=== PATIENT | female | born 1990 | race American Indian/Alaskan Native ===

== ENCOUNTER 2018-09-19 19:35 | Emergency (ER) | payer BC ==
[2018-09-19] MEDS ORDERED: IBUPROFEN PO ONE ×2 (20:09→20:12)
--- NOTE | 2018-09-20 00:24 | Emergency Department Report ---
ED ENT HPI - General Chief complaint: Sore Throat Stated complaint: SORE THROAT FEVER CHILLS HEADACHE Source: patient, family Mode of arrival: Ambulatory Limitations: No Limitations - History of Present Illness Initial comments: This is a 28-year-old Gladys female who presents to the emergency room with sore throat, fever, chills and headache that started this morning. Patient states she took some Tylenol but can't break the fever. She denies nausea, vomiting, diarrhea. MD complaint: sore throat -: This morning Location: throat Severity: moderate Severity scale (0 -10): 8 Quality: aching Consistency: intermittent Improves with: none Worsens with: swallowing, eating Associated Symptoms: fever, pain with swallowing, sore throat. denies: cough, gum swelling, toothache, tinnitus, hearing loss, discharge from ear, rhinorrhea - Related Data Previous Rx's Medication Instructions Recorded Last Taken Type Cetirizine HCl [Zyrtec 10mg tab] 10 mg PO DAILY #30 tablet 09/20/18 Unknown Rx Fluticasone [Flonase] 1 spray NS QDAY #1 bottle 09/20/18 Unknown Rx methylPREDNISolone [Medrol 4MG 4 mg PO DAILY #1 tab.ds.pk 09/20/18 Unknown Rx DOSEPAK (21 tabs)] Allergies Allergy/AdvReac Type Severity Reaction Status Date / Time No Known Allergies Allergy Unverified 09/19/18 19:47 ED Dental HPI - General Chief complaint: Sore Throat Stated complaint: SORE THROAT FEVER CHILLS HEADACHE Source: patient, family Mode of arrival: Ambulatory Limitations: No Limitations - Related Data Previous Rx's Medication Instructions Recorded Last Taken Type Cetirizine HCl [Zyrtec 10mg tab] 10 mg PO DAILY #30 tablet 09/20/18 Unknown Rx Fluticasone [Flonase] 1 spray NS QDAY #1 bottle 09/20/18 Unknown Rx methylPREDNISolone [Medrol 4MG 4 mg PO DAILY #1 tab.ds.pk 09/20/18 Unknown Rx DOSEPAK (21 tabs)] Allergies Allergy/AdvReac Type Severity Reaction Status Date / Time No Known Allergies Allergy Unverified 09/19/18 19:47 ED Review of Systems ROS: Stated complaint: SORE THROAT FEVER CHILLS HEADACHE Other details as noted in HPI Constitutional: chills, fever ENT: throat pain. denies: ear pain Respiratory: denies: cough, shortness of breath, wheezing Cardiovascular: denies: chest pain, palpitations Gastrointestinal: denies: abdominal pain, nausea, diarrhea Skin: denies: rash, lesions Neurological: headache. denies: weakness, paresthesias Psychiatric: denies: anxiety, depression ED Past Medical Hx - Past Medical History Previous Medical History?: No - Surgical History Past Surgical History?: No - Social History Smoking Status: Never Smoker Substance Use Type: None - Medications Home Medications: Home Medications Medication Instructions Recorded Confirmed Last Taken Type Cetirizine HCl [Zyrtec 10mg tab] 10 mg PO DAILY #30 tablet 09/20/18 Unknown Rx Fluticasone [Flonase] 1 spray NS QDAY #1 bottle 09/20/18 Unknown Rx methylPREDNISolone [Medrol 4MG 4 mg PO DAILY #1 tab.ds.pk 09/20/18 Unknown Rx DOSEPAK (21 tabs)] ED Physical Exam - General Limitations: No Limitations General appearance: alert, in no apparent distress, obese - ENT ENT exam: Present: mucous membranes moist, TM's normal bilaterally, normal external ear exam, other (turbinates mildly congested with clear discharge). Absent: normal orophraynx (erythematous enlarged tonsils without exudate, uvula midline) - Neck Neck exam: Present: normal inspection - Respiratory Respiratory exam: Present: normal lung sounds bilaterally. Absent: respiratory distress - Cardiovascular Cardiovascular Exam: Present: regular rate, normal rhythm. Absent: systolic murmur, diastolic murmur, rubs, gallop - GI/Abdominal GI/Abdominal exam: Present: soft, normal bowel sounds - Neurological Exam Neurological exam: Present: alert, oriented X3, normal gait - Psychiatric Psychiatric exam: Present: normal affect, normal mood - Skin Skin exam: Present: warm, dry, intact, normal color. Absent: rash ED Course Vital Signs 09/19/18 09/20/18 20:00 00:55 Temperature 100.7 F H Pulse Rate 105 H 86 Respiratory 18 18 Rate Blood Pressure 125/68 Blood Pressure 113/64 [Left] O2 Sat by Pulse 100 100 Oximetry ED Medical Decision Making - Lab Data Lab Results 09/19/18 Range/Units Unknown Group A Strep Rapid Negative (Negative) - Medical Decision Making Patient examined by me and stable. No distress noted. Elevated temperature. Given ibuprofen in triage. Rapid strep obtained and negative. Symptoms are susceptible of viral syndrome. She is instructed to take Tylenol or ibuprofen for aches and pains, to drink a lot of liquids to stay home and rest. Start flonase, Medrol Dosepak, cetirizine, continue you Tylenol and ibuprofen. Discharged home stable. Educated on care for viral syndrome. She was given a note to return to work in 3 days. Follow up with Primary Care Provider in 2-3 days. She will return to the emergency room if he does not get better as discussed. Critical care attestation.: If time is entered above; I have spent that time in minutes in the direct care of this critically ill patient, excluding procedure time. ED Disposition Clinical Impression: Sore throat, Acute viral pharyngitis Disposition: TO HOME OR SELFCARE Is pt being admited?: No Does the pt Need Aspirin: No Condition: Stable Instructions: Pharyngitis (ED) Additional Instructions: Expect symptoms to improve within 3 or 4 days. There is no need for bed rest or isolation. Use Tylenol or ibuprofen for symptoms of sore throat, headache, and fever. Follow up with Primary Care Provider in 48-72 hours. Prescriptions: Fluticasone [Flonase] 1 spray NS QDAY #1 bottle methylPREDNISolone [Medrol 4MG DOSEPAK (21 tabs)] 4 mg PO DAILY #1 tab.ds.pk Cetirizine HCl [Zyrtec 10mg tab] 10 mg PO DAILY #30 tablet Referrals: [facility] [Provider Group] - 3-5 Days [facility] [Provider Group] - 3-5 Days [facility] [Provider Group] - 3-5 Days Forms: Work/School Release Form(ED) Time of Disposition: 00:27
[2018-09-20] MEDS ORDERED: DECADRON IM ONE (00:25)
[2018-09-20 01:07] VITALS: BP 113/64
== END 2018-09-20 00:55 | disposition home or self-care (01) ==
LOC: ED 19:35
DX: J02.8 Acute pharyngitis due to other specified organisms (principal)
CPT/HCPCS: 87116; 87430; 96372; 99283; J1100